=== PATIENT | female | born 1980 | race Caucasian/White ===

== ENCOUNTER 2020-04-25 16:01 | Emergency (ER) | payer MEDICAID, OTHER ==
[~2020-04-25] VITALS: Ht 152.4 cm; Wt 59.0 kg
[2020-04-25] MEDS ORDERED: LIDOCAINE HCL 2% 20 ML VIAL TP ONE (16:45)
[2020-04-25] MEDS ORDERED: CLINDAMYCIN HCL 150 MG CAPSULE PO ONE (16:45)
[2020-04-25] MEDS ORDERED: LIDOCAINE HCL 2% 20 ML VIAL ONE (16:51)
[2020-04-25] MEDS ORDERED: CLINDAMYCIN HCL 150 MG CAPSULE ONE (16:51)
--- NOTE | 2020-04-25 16:56 | NUR ---
PT IS IN ROOM #2B. DR DOUGLASS EVALUATED THE PT.
[2020-04-25] MEDS ORDERED: HYDROCODONE/APAP 5-325MG TABLET PO ONE (17:00)
[2020-04-25] MEDS ORDERED: IBUPROFEN 600 MG TABLET PO ONE (17:00)
[2020-04-25] MEDS ORDERED: IBUPROFEN 600 MG TABLET ONE (17:13)
[2020-04-25] MEDS ORDERED: HYDROCODONE/APAP 5-325MG TABLET ONE (17:13)
--- NOTE | 2020-04-25 18:02 | NUR ---
PT WAS D/C'd TO HOME AFTER I&D PROCEDURE PERFORMED BY DR DOUGLASS. PT TOLERATED TO PROCEDURE WITHOUT COMPLICATIONS. D/C INSTRUCTIONS GIVEN TO THE PT BY DR DOUGLASS.
[2020-04-25 18:03] VITALS: BP 126/73
== END 2020-04-25 18:04 | disposition home or self-care (01) ==
LOC: ER 16:01
PROC: 0U9L0ZZ Drainage of Vestibular Gland, Open Approach (ICD-10-PCS; principal; 2020-04-25)
DX: N75.0 Cyst of Bartholin's gland (principal); F12.20 Cannabis dependence, uncomplicated; Z87.898 Personal history of other specified conditions
CPT/HCPCS: 56420; 99284; J3490; A4663